=== PATIENT | male | born 1995 | race African-American/Black ===

== ENCOUNTER 2019-05-08 14:53 | Emergency (ER) | payer SELFPAY ==
[~2019-05-08] VITALS: Ht 175.3 cm; Wt 68.9 kg
[2019-05-08 15:20] VITALS: BP 118/57
[2019-05-08] MEDS ORDERED: NAPR-514 PO (15:57)
--- NOTE | 2019-05-08 15:57 | PHYS DOC ---
Past Medical History Past Medical History: No Pertinent History Past Surgical History: Other Additional Past Surgical Histo: rt arm Alcohol Use: None Drug Use: Marijuana Adult General Chief Complaint Chief Complaint: CHEST WALL PAIN HPI HPI Patient is a 24 year old AA male, accompanied by his girlfriend, with complaints of intermittent chest discomfort for the last 2 years. Pt states the sx returned today. He admits to smoking marijuana last night and reports recent nasal congestion, cough with occasional mucous produced, and frequent throat clearing. The chest pain is reproducible with cough and palpation of his sternum. Pt denies any nausea, vomiting, diarrhea, fever, shortness of breath, diaphoresis, ear pain, or sore throat. Currently, his pain is a 5/10 there are no alleviating factors. Review of Systems Review of Systems Constitutional: Denies fever or chills [] Eyes: Denies change in visual acuity, redness, or eye pain [] HENT: See HPI Respiratory: see HPI Cardiovascular: No additional information not addressed in HPI [] GI: Denies abdominal pain, nausea, vomiting, or diarrhea [] Musculoskeletal: Denies back pain or joint pain [] Integument: Denies rash or skin lesions [] Neurologic: Denies headache, focal weakness or sensory changes [] complete systems were reviewed and found to be within normal limits, except as documented in this note. Allergies Allergies Allergies Coded Allergies Type Severity Reaction Last Updated Verified No Known Drug Allergies 05/08/19 No Physical Exam Physical Exam Constitutional: Well developed, well nourished, no acute distress, non-toxic appearance. [] HENT: Normocephalic, atraumatic, bilateral external ears normal, bilateral TMs normal, cobblestone appearance of posterior pharynx, oropharynx moist, no oral exudates, nasal turbinates erythematous Eyes: conjunctiva normal, no discharge. [] Neck: Normal range of motion, no tenderness, supple, no stridor. [] Cardiovascular:Heart rate regular rhythm, no murmur [] Lungs & Thorax: Bilateral breath sounds clear to auscultation; substernal CP with palpation [] Skin: Warm, dry, no erythema, no rash. [] Extremities: No cyanosis, ROM intact, no edema. [] Neurologic: Alert and oriented X 3, no focal deficits noted. [] Psychologic: Affect normal, judgement normal, mood normal. [] Current Patient Data Vital Signs Vital Signs Date Time Temp Pulse Resp B/P (MAP) Pulse Ox O2 Delivery O2 Flow Rate FiO2 05/08/19 15:20 98.3 66 14 118/57 (77) 99 Room Air 98.3 EKG EKG [] Radiology/Procedures Radiology/Procedures [] Course & Med Decision Making Course & Med Decision Making Pertinent Labs and Imaging studies reviewed. (See chart for details) [] Dragon Disclaimer Dragon Disclaimer This electronic medical record was generated, in whole or in part, using a voice recognition dictation system. Departure Departure Impression: Primary Impression: Allergic rhinitis Additional Impression: Costochondritis, acute Disposition: HOME, SELF-CARE Condition: STABLE Referrals: NO PCP (PCP) Patient Instructions: Allergic Rhinitis, Costochondritis, [id number] Additional Instructions: Stop smoking marijuana. Fill prescription(s) and use as directed. Recommend use of [id number] Flonase nasal spray, 2 sprays each nare daily and taking a daily antihistamine such as Claritin or Zyrtec. Avoid triggers such as smoke, fragrance, dust, and pollen. Follow-up with her primary care doctor as needed, return to the ER if your symptoms worsen. Scripts Naproxen (NAPROXEN) 500 Mg Tablet 1 TAB PO BID for 10 Days, #20 TAB 0 Refills Prov: SERGIO WILLIAMSON APRN 05/08/19 Problem Qualifiers Primary Impression: Allergic rhinitis Allergic rhinitis trigger: unspecified Allergic rhinitis seasonality: unspecified Qualified Codes: J30.9 - Allergic rhinitis, unspecified SERGIO WILLIAMSON APRN May 08, 2019 15:57
== END 2019-05-08 16:22 | disposition home or self-care (01) ==
LOC: ER 14:53
DX: J30.9 Allergic rhinitis, unspecified (principal); M94.0 Chondrocostal junction syndrome [Tietze]; F12.20 Cannabis dependence, uncomplicated
CPT/HCPCS: 93005; 99281; 99283

== ENCOUNTER 2019-06-15 13:20 | Emergency (ER) | payer SELFPAY ==
[~2019-06-15] VITALS: Ht 182.9 cm; Wt 68.9 kg
[~2019-06-15 13:20] MED LIST: NAPR-514 PO
--- NOTE | 2019-06-15 15:26 | PHYS DOC ---
Past Medical History Past Medical History: No Pertinent History Past Surgical History: Other Additional Past Surgical Histo: rt arm Alcohol Use: None Drug Use: Marijuana Adult General Chief Complaint Chief Complaint: HAND PROBLEM HPI HPI Patient is a 24 year old Male who presents with states one week ago he punched the floor with his right hand. Patient has bruising and 1+ swelling to the dorsal hand just distal to the fourth and fifth metacarpal. Review of Systems Review of Systems Constitutional: Denies fever or chills [] Eyes: Denies change in visual acuity, redness, or eye pain [] HENT: Denies nasal congestion or sore throat [] Respiratory: Denies cough or shortness of breath [] Cardiovascular: No additional information not addressed in HPI [] GI: Denies abdominal pain, nausea, vomiting, bloody stools or diarrhea [] : Denies dysuria or hematuria [] Musculoskeletal: Dorsal right hand pain. Denies back pain or joint pain [] Integument: Denies rash or skin lesions [] Neurologic: Denies headache, focal weakness or sensory changes [] Endocrine: Denies polyuria or polydipsia [] All other systems were reviewed and found to be within normal limits, except as documented in this note. Current Medications Current Medications Current Medications Medications (Trade) Dose Ordered Sig/Sriram Start Time Stop Time Status Last Admin Dose Admin Acetaminophen/ Hydrocodone Bitart (Lortab 5/325) 1 tab 1X ONCE 06/15/19 15:30 06/15/19 15:31 DC 06/15/19 15:29 1 TAB Allergies Allergies Allergies Coded Allergies Type Severity Reaction Last Updated Verified No Known Drug Allergies 05/08/19 No Physical Exam Physical Exam Constitutional: Well developed, well nourished, no acute distress, non-toxic appearance. [] HENT: Normocephalic, atraumatic, bilateral external ears normal, oropharynx moist, no oral exudates, nose normal. [] Eyes: PERRLA, EOMI, conjunctiva normal, no discharge. [] Neck: Normal range of motion, no tenderness, supple, no stridor. [] Cardiovascular:Heart rate regular rhythm, no murmur [] Lungs & Thorax: Bilateral breath sounds clear to auscultation [] Abdomen: Bowel sounds normal, soft, no tenderness, no masses, no pulsatile masses. [] Skin: Bruising to dorsal right hand distal to 4th and 5th knuckle. Warm, dry, no erythema, no rash. [] Back: No tenderness, no CVA tenderness. [] Extremities: Right dorsal hand distal to the fourth and fifth knuckle tenderness, no cyanosis, no clubbing, ROM intact, 1+ edema. [] Neurologic: Alert and oriented X 3, normal motor function, normal sensory function, no focal deficits noted. [] Psychologic: Affect normal, judgement normal, mood normal. [] Current Patient Data Vital Signs Vital Signs Date Time Temp Pulse Resp B/P (MAP) Pulse Ox O2 Delivery O2 Flow Rate FiO2 06/15/19 15:29 16 99 Room Air 06/15/19 14:03 98.4 60 121/71 (88) 98.4 EKG EKG [] Radiology/Procedures Radiology/Procedures [] Impressions: [facility] [address] [place] [address] IMAGING REPORT Signed PATIENT: ALEXI SAUCEDO ACCOUNT: [id number] : 1995 LOCATION: ER AGE: 24 SEX: M EXAM STATUS: REG ER ORD. PHYSICIAN: MARY AMBRIZ APRN REASON: PAIN, INJURY, PUNCHED FLOOR PROCEDURE: HAND RIGHT 3V 3 view study of the right hand Clinical indications: Right hand pain after injury punching floor. FINDINGS: There is a nondisplaced fracture of the proximal epiphysis and metaphysis of the fifth metacarpal bone. Fracture appears impacted. No dislocation or lytic process is evident. IMPRESSION: Posttraumatic acute fracture of the proximal fifth metacarpal bone. Electronically signed by: Yoel Hansen MD (06/15/2019 3:50 PM) [facility] DICTATED and SIGNED BY: YOEL HANSEN MD DATE: 06/15/19 167 Course & Med Decision Making Course & Med Decision Making Patient is a 24 year old Male who presents with states one week ago he punched the floor with his right hand. Patient has bruising and 1+ swelling to the dorsal hand just distal to the fourth and fifth metacarpal. Refill less than 3 seconds. Skin pink warm and dry. Radial pulses strong and present. Patient can make a full fist. There is tenderness with palpation to the area. No deformity i s seen or felt. There is bruising to the area. Patient states the swelling has gone down since 1 week ago when the incident happened. Patient rates his pain a 10 out of 10 and states is throbbing and tender. Hand xray shows IMPRESSION: Posttraumatic acute fracture of the proximal fifth metacarpal bone. Ulnar gutter splint placed. Patient to follow up with Orthopedics as soon as possible. Splint Assessment: Neurovascularly intact post splint placement with good fit. Dragon Disclaimer Dragon Disclaimer This electronic medical record was generated, in whole or in part, using a voice recognition dictation system. Departure Departure Impression: Primary Impression: Rodolfoers fracture Disposition: HOME, SELF-CARE Condition: STABLE Referrals: NO PCP (PCP) BOBBY SULLIVAN II, MD Patient Instructions: Boxer's Fracture Additional Instructions: Follow-up with orthopedics as soon as possible. Don't take splint off until you are seen by orthopedics. Take medications as prescribed. Scripts Hydrocodone/Apap 5-325 (NORCO 5-325 TABLET) 1 Each Tablet 1 TAB PO PRN Q6HRS PRN for PAIN, #10 TAB 0 Refills Prov: MARY AMBRIZ APRN 06/15/19 Problem Qualifiers Primary Impression: Boxers fracture Encounter type: initial encounter Fracture type: closed Qualified Codes: S62.339A - Displaced fracture of neck of unspecified metacarpal bone, initial encounter for closed fracture MARY AMBRIZ APRN Jun 15, 2019 15:26
[2019-06-15] MEDS ORDERED: HYDROcodone/APAP 5/325MG 1 TAB TABLET PO ONE (15:30)
--- NOTE | 2019-06-15 15:53 | RAD ---
3 view study of the right hand Clinical indications: Right hand pain after injury punching floor. FINDINGS: There is a nondisplaced fracture of the proximal epiphysis and metaphysis of the fifth metacarpal bone. Fracture appears impacted. No dislocation or lytic process is evident. IMPRESSION: Posttraumatic acute fracture of the proximal fifth metacarpal bone. Electronically signed by: Estuardo Hansen MD (06/15/2019 3:50 PM) [facility]
[2019-06-15] MEDS ORDERED: HYDR-3164 PO (16:01)
== END 2019-06-15 16:46 | disposition home or self-care (01) ==
LOC: ER 13:20
DX: S62.336A Displaced fracture of neck of fifth metacarpal bone, right hand, initial encounter for closed fracture (principal); W22.09XA Striking against other stationary object, initial encounter; Y93.89 Activity, other specified; Y92.89 Other specified places as the place of occurrence of the external cause; Y99.8 Other external cause status
CPT/HCPCS: 29125; 73130; 99284